=== PATIENT | female | born 1995 | race Caucasian/White ===

== ENCOUNTER 2018-05-28 13:08 | Emergency (ER) | payer OTHER ==
[~2018-05-28] VITALS: Ht 152.4 cm; Wt 68.0 kg
[~2018-05-28 13:08] MED LIST: BACTRIM DS TAB1 EACH PO; BENADRYL25 MG PO; MIRALAX17 GM PO; TRIAMCINOLONE A80 G2 TOP; VENTOLIN HFA 1818 GM INH
[2018-05-28] MEDS ORDERED: BACTRIM DS TAB1 EACH PO (13:33)
[2018-05-28] MEDS ORDERED: TRAMADOL 50 MG50 MG PO (13:33)
[2018-05-28] MEDS ORDERED: NABUMETONE 750750 M1 PO (13:33)
[2018-05-28 14:35] VITALS: BP 126/57
== END 2018-05-28 14:36 | disposition home or self-care (01) ==
LOC: M.ERS 13:08
DX: L02.31 Cutaneous abscess of buttock (principal); J45.909 Unspecified asthma, uncomplicated

== ENCOUNTER 2018-09-05 11:39 | Emergency (ER) | payer OTHER ==
[~2018-09-05] VITALS: Ht 152.4 cm; Wt 72.6 kg
[~2018-09-05 11:39] MED LIST changes: +NABUMETONE 750750 M1 PO; +TRAMADOL 50 MG50 MG PO
[2018-09-05] MEDS ORDERED: TESSALON PERLE100 MG PO (11:47)
[2018-09-05] MEDS ORDERED: PREDNISOLONE 5 M5 M1 PO (11:48)
[2018-09-05 12:08] LABS: ABSOLUTE BASOPHILS 0.1 thou/uL (0.0-0.2); ABSOLUTE EOSINOPHILS 0.2 thou/uL (0.0-0.7); ABSOLUTE LYMPHOCYTES 2.3 thou/uL (0.8-5.3); ABSOLUTE MONOCYTES 0.6 thou/uL (0.0-1.2); ABSOLUTE NEUTROPHILS 7.8 thou/uL (1.6-8.1); BASOPHILS 0.8 %; EOSINOPHILS 1.4 %; HEMATOCRIT 37.6 % (37.0-47.0); LYMPHOCYTES 21.2 %; MCH 29.6 pg (26.0-34.0); MCHC 34.6 g/dL (28.0-37.0); MCV 85.5 fL (80.0-100.0); MONOCYTES 5.5 %; MPV 7.4 fl. (7.2-11.1); NUCLEATED RBCS 0 /100WBC; PLATELET COUNT* 381 thou/uL (150-400); POLYS 71.1 %; RDW-CV 13.5 % (10.5-14.5)
[2018-09-05 12:16] LABS: URINE BILIRUBIN NEGATIVE (Negative); URINE BLOOD 2+ (Negative); URINE CLARITY CLEAR; URINE COLOR YELLOW; URINE GLUCOSE-RANDOM NEGATIVE (Negative); URINE KETONES NEGATIVE (Negative); URINE LEUKOCYTES-REFLEX NEGATIVE (Negative); URINE NITRITE-REFLEX NEGATIVE (Negative); URINE PROTEIN NEGATIVE (Negative); URINE SPECIFIC GRAVITY 1.025 (1.005-1.030)
[2018-09-05 12:17] LABS: CALCIUM 9.2 mg/dL (8.5-10.1); CREATININE 0.8 mg/dL (0.6-1.3); POTASSIUM 3.8 mmol/L (3.5-5.1)
[2018-09-05 12:22] LABS: TOTAL BILIRUBIN 0.4 mg/dL (<0.1-1.0); TOTAL PROTEIN 8.5 g/dL (6.4-8.2)
[2018-09-05 12:25] LABS: SQUAMOUS 4-10 Moderate /LPF (0-3)
[2018-09-05 12:26] LABS: URINE RBC 3-10 Few /HPF (0-2); URINE WBC-REFLEX 0-5 Rare /HPF (0-5)
[2018-09-05 12:27] LABS: CASTS None Seen /LPF (None Seen); CRYSTALS None Seen /LPF (None Seen); MUCUS >6 Heavy strn/LPF (None Seen)
[2018-09-05] MEDS ORDERED: ZOFRAN ODT4 MG DISSOLVE (13:00)
[2018-09-05] MEDS ORDERED: FLOMAX0.4 MG PO (13:00)
[2018-09-05] MEDS ORDERED: IBUPROFEN 800800 M1 PO (13:00)
[2018-09-05] MEDS ORDERED: PERCOCET PO (13:00)
[2018-09-05 13:22] VITALS: BP 126/70
== END 2018-09-05 13:23 | disposition home or self-care (01) ==
LOC: M.ERS 11:39
PROVIDERS: Emergency Medicine Emergency Medical Services
DX: N20.0 Calculus of kidney (principal); J45.909 Unspecified asthma, uncomplicated; Z88.5 Allergy status to narcotic agent

== ENCOUNTER 2018-10-26 10:14 | Emergency (ER) | payer OTHER ==
[~2018-10-26] VITALS: Ht 152.4 cm; Wt 72.6 kg
[~2018-10-26 10:14] MED LIST changes: +FLOMAX0.4 MG PO; +IBUPROFEN 800800 M1 PO; +PERCOCET PO; +PREDNISOLONE 5 M5 M1 PO; +TESSALON PERLE100 MG PO; +ZOFRAN ODT4 MG DISSOLVE
[2018-10-26] MEDS ORDERED: VENTOLIN HFA 1818 GM INH (10:29)
[2018-10-26 10:49] LABS: ICTOTEST (BILI CONFIRMATORY) Negative (Negative); URINE BILIRUBIN 1+ (Negative); URINE BLOOD NEGATIVE (Negative); URINE CLARITY CLEAR; URINE COLOR YELLOW; URINE GLUCOSE-RANDOM NEGATIVE (Negative); URINE KETONES NEGATIVE (Negative); URINE LEUKOCYTES-REFLEX NEGATIVE (Negative); URINE NITRITE-REFLEX NEGATIVE (Negative); URINE PROTEIN TRACE (Negative); URINE SPECIFIC GRAVITY 1.025 (1.005-1.030)
[2018-10-26 11:35] LABS: ABSOLUTE BASOPHILS 0.1 thou/uL (0.0-0.2); ABSOLUTE EOSINOPHILS 0.1 thou/uL (0.0-0.7); ABSOLUTE LYMPHOCYTES 1.9 thou/uL (0.8-5.3); ABSOLUTE MONOCYTES 0.6 thou/uL (0.0-1.2); ABSOLUTE NEUTROPHILS 7.1 thou/uL (1.6-8.1); BASOPHILS 1.1 %; EOSINOPHILS 1.5 %; HEMATOCRIT 36.3 % (37.0-47.0); HEMOGLOBIN 12.4 gm/dL (12.0-15.0); LYMPHOCYTES 19.4 %; MCH 29.4 pg (26.0-34.0); MCHC 34.1 g/dL (28.0-37.0); MCV 86.3 fL (80.0-100.0); MONOCYTES 6.1 %; MPV 7.4 fl. (7.2-11.1); NUCLEATED RBCS 0 /100WBC; PLATELET COUNT* 343 thou/uL (150-400); POLYS 71.9 %; RDW-CV 13.3 % (10.5-14.5); WBC 9.9 thou/uL (4.0-11.0)
[2018-10-26 11:43] LABS: CALCIUM 9.3 mg/dL (8.5-10.1); CREATININE 0.7 mg/dL (0.6-1.3); POTASSIUM 3.6 mmol/L (3.5-5.1)
[2018-10-26 11:48] LABS: ALBUMIN 3.6 g/dL (3.4-5.0); TOTAL BILIRUBIN 0.4 mg/dL (<0.1-1.0); TOTAL PROTEIN 7.9 g/dL (6.4-8.2)
[2018-10-26 13:20] VITALS: BP 138/79
== END 2018-10-26 13:20 | disposition home or self-care (01) ==
LOC: M.ERS 10:14
PROVIDERS: Family Medicine; Nurse Practitioner Family
DX: O23.511 Infections of cervix in pregnancy, first trimester (principal); Z3A.09 9 weeks gestation of pregnancy; O99.511 Diseases of the respiratory system complicating pregnancy, first trimester; J45.909 Unspecified asthma, uncomplicated; Z88.5 Allergy status to narcotic agent

== ENCOUNTER 2019-12-06 13:14 | Emergency (ER) | payer OTHER ==
[~2019-12-06] VITALS: Ht 160 cm; Wt 87.6 kg
[2019-12-06 13:53] LABS: ABSOLUTE EOSINOPHILS 0.2 thou/uL (0.0-0.7); ABSOLUTE LYMPHOCYTES 2.8 thou/uL (0.8-5.3); ABSOLUTE MONOCYTES 0.6 thou/uL (0.0-1.2); ABSOLUTE NEUTROPHILS 5.3 thou/uL (1.6-8.1); BASOPHILS 0.3 %; EOSINOPHILS 2.3 %; HEMATOCRIT 36.3 % (37.0-47.0); HEMOGLOBIN 12.5 gm/dL (12.0-15.0); LYMPHOCYTES 31.2 %; MCH 28.3 pg (26.0-34.0); MCHC 34.6 g/dL (28.0-37.0); MCV 81.8 fL (80.0-100.0); MONOCYTES 6.9 %; MPV 7.4 fl. (7.2-11.1); NUCLEATED RBCS 0 /100WBC; PLATELET COUNT* 320 thou/uL (150-400); POLYS 59.3 %; RBC 4.44 mil/uL (4.20-5.00); RDW-CV 14.3 % (10.5-14.5); WBC 8.9 thou/uL (4.0-11.0)
[2019-12-06 14:01] LABS: CREATININE 0.6 mg/dL (0.6-1.3); POTASSIUM 3.8 mmol/L (3.5-5.1)
[2019-12-06 14:12] LABS: ALBUMIN 3.8 g/dL (3.4-5.0); TOTAL BILIRUBIN 0.4 mg/dL (<0.1-1.0); TOTAL PROTEIN 7.7 g/dL (6.4-8.2)
[2019-12-06 14:18] LABS: URINE BILIRUBIN NEGATIVE (Negative); URINE BLOOD NEGATIVE (Negative); URINE CLARITY CLEAR; URINE COLOR YELLOW; URINE GLUCOSE-RANDOM NEGATIVE (Negative); URINE KETONES NEGATIVE (Negative); URINE LEUKOCYTES-REFLEX NEGATIVE (Negative); URINE NITRITE-REFLEX NEGATIVE (Negative); URINE PROTEIN NEGATIVE (Negative); URINE SPECIFIC GRAVITY 1.025 (1.005-1.030); URINE UROBILINOGEN 0.2 E.U./dl (0.2-1.0)
[2019-12-06 15:10] LABS: INFLUENZA A ANTIGEN Negative (Negative); INFLUENZA B ANTIGEN Negative (Negative)
[2019-12-06 15:27] VITALS: BP 134/60
--- NOTE | 2019-12-06 16:32 | EKG ---
[place] [address] ELECTROCARDIOGRAM REPORT Name: FAWN MAXWELL Izabella Room: [facility]#: [id number] Admission: 12/06/19 Attend Phys: Discharge: 12/06/19 Date of : [birth year] Date of Service: 12/06/19 1332 Report #: [id number] THIS REPORT FOR: //name// [facility] ED Test Date: 2019-12-06 Test Time: 13:32:46 Pat Name: FAWN MAXWELL Department: Room: Gender: Soot Blower: VÍCTOR : 1995 Requested By: Rikki Canales Order Number: [id number] MD: Helder Hernandez Measurements Intervals [place] Rate: 77 P: 49 [place]: 195 QRS: 35 QRSD: 100 T: 20 QT: 383 QTc: 434 Interpretive Statements Sinus rhythm Abnormal inferior Q waves No previous ECG available for comparison Electronically Signed On 12-06-2019 16:31:13 CDT by Helder Hernandez [email or web address] <ELECTRONICALLY SIGNED> By: Helder Hernandez MD, [facility] 12/06/19 1631 31 31 Helder Hernandez MD, FACC /EPI
== END 2019-12-06 15:28 | disposition home or self-care (01) ==
LOC: M.ERS 13:14
PROVIDERS: Emergency Medicine Emergency Medical Services
DX: R42 Dizziness and giddiness (principal); J45.909 Unspecified asthma, uncomplicated; Z87.442 Personal history of urinary calculi; Z88.5 Allergy status to narcotic agent; Z88.6 Allergy status to analgesic agent

== ENCOUNTER 2020-01-10 12:16 | Emergency (ER) | payer OTHER ==
[~2020-01-10] VITALS: Ht 152.4 cm; Wt 88.5 kg
[2020-01-10] MEDS ORDERED: METFORMIN HCL500 M3 PO (12:27)
[2020-01-10 12:54] LABS: INFLUENZA A ANTIGEN Negative (Negative); INFLUENZA B ANTIGEN Negative (Negative)
[2020-01-10 13:25] LABS: URINE BILIRUBIN NEGATIVE (Negative); URINE BLOOD NEGATIVE (Negative); URINE CLARITY CLEAR; URINE COLOR YELLOW; URINE GLUCOSE-RANDOM NEGATIVE (Negative); URINE KETONES NEGATIVE (Negative); URINE LEUKOCYTES-REFLEX NEGATIVE (Negative); URINE NITRITE-REFLEX NEGATIVE (Negative); URINE PROTEIN NEGATIVE (Negative); URINE SPECIFIC GRAVITY 1.025 (1.005-1.030); URINE UROBILINOGEN 0.2 E.U./dl (0.2-1.0)
[2020-01-10] MEDS ORDERED: VENTOLIN HFA 1818 GM INH (13:48)
[2020-01-10] MEDS ORDERED: ZPAK PO (13:48)
[2020-01-10 14:43] VITALS: BP 130/78
== END 2020-01-10 14:43 | disposition home or self-care (01) ==
LOC: M.ERS 12:16
PROVIDERS: Nurse Practitioner Family
DX: J06.9 Acute upper respiratory infection, unspecified (principal); R07.89 Other chest pain; J45.909 Unspecified asthma, uncomplicated; E11.9 Type 2 diabetes mellitus without complications; Z87.442 Personal history of urinary calculi; Z88.5 Allergy status to narcotic agent; Z88.6 Allergy status to analgesic agent

== ENCOUNTER 2020-05-23 20:24 | Emergency (ER) | payer MEDICAID ==
[~2020-05-23] VITALS: Ht 152.4 cm; Wt 83.9 kg
[~2020-05-23 20:24] MED LIST changes: +METFORMIN HCL500 M3 PO; +ZPAK PO
[2020-05-23 22:33] LABS: ABSOLUTE EOSINOPHILS 0.2 thou/uL (0.0-0.7); ABSOLUTE LYMPHOCYTES 3.4 thou/uL (0.8-5.3); ABSOLUTE MONOCYTES 0.5 thou/uL (0.0-1.2); ABSOLUTE NEUTROPHILS 4.3 thou/uL (1.6-8.1); BASOPHILS 0.4 %; EOSINOPHILS 2.5 %; HEMATOCRIT 36.3 % (37.0-47.0); HEMOGLOBIN 12.8 gm/dL (12.0-15.0); LYMPHOCYTES 40.5 %; MCH 30.3 pg (26.0-34.0); MCHC 35.3 g/dL (28.0-37.0); MCV 85.8 fL (80.0-100.0); MONOCYTES 6.4 %; MPV 7.6 fl. (7.2-11.1); NUCLEATED RBCS 0 /100WBC; PLATELET COUNT* 336 thou/uL (150-400); POLYS 50.2 %; RBC 4.23 mil/uL (4.20-5.00); RDW-CV 12.9 % (10.5-14.5); WBC 8.5 thou/uL (4.0-11.0)
[2020-05-23 22:41] LABS: CALCIUM 8.6 mg/dL (8.5-10.1); CREATININE 0.8 mg/dL (0.6-1.3); POTASSIUM 3.7 mmol/L (3.5-5.1)
[2020-05-23 22:46] LABS: ALBUMIN 3.8 g/dL (3.4-5.0); TOTAL BILIRUBIN 0.2 mg/dL (<0.1-1.0); TOTAL PROTEIN 7.7 g/dL (6.4-8.2)
[2020-05-23 22:46] LABS: URINE BILIRUBIN NEGATIVE (Negative); URINE BLOOD 3+ (Negative); URINE CLARITY CLEAR; URINE COLOR YELLOW; URINE GLUCOSE-RANDOM NEGATIVE (Negative); URINE KETONES NEGATIVE (Negative); URINE LEUKOCYTES-REFLEX NEGATIVE (Negative); URINE NITRITE-REFLEX NEGATIVE (Negative); URINE PROTEIN NEGATIVE (Negative); URINE SPECIFIC GRAVITY 1.025 (1.005-1.030); URINE UROBILINOGEN 0.2 E.U./dl (0.2-1.0)
[2020-05-23 22:54] LABS: SQUAMOUS 4-10 Moderate /LPF (0-3); URINE RBC 0-2 Rare /HPF (0-2); URINE WBC-REFLEX 0-5 Rare /HPF (0-5)
[2020-05-23 22:55] LABS: BACTERIA-REFLEX >30 Many /HPF (None Seen); CASTS None Seen /LPF (None Seen); CRYSTALS None Seen /LPF (None Seen); MUCUS 0-3 Light strn/LPF (None Seen)
[2020-05-24] MEDS ORDERED: IBUPROFEN 800800 MG PO (01:09)
[2020-05-24] MEDS ORDERED: CYCLOBENZAPRINE5 MG PO (01:09)
[2020-05-24 01:11] VITALS: BP 118/78
== END 2020-05-24 01:11 | disposition home or self-care (01) ==
LOC: M.ERS 20:24
PROVIDERS: Nurse Practitioner Family
DX: N93.8 Other specified abnormal uterine and vaginal bleeding (principal); J45.909 Unspecified asthma, uncomplicated; E11.9 Type 2 diabetes mellitus without complications; F17.210 Nicotine dependence, cigarettes, uncomplicated; Z88.6 Allergy status to analgesic agent; Z88.5 Allergy status to narcotic agent; Z87.442 Personal history of urinary calculi

== ENCOUNTER 2020-06-20 13:23 | Emergency (ER) | payer MEDICAID ==
[~2020-06-20] VITALS: Ht 152.4 cm; Wt 82.6 kg
[~2020-06-20 13:23] MED LIST changes: +CYCLOBENZAPRINE5 MG PO; +IBUPROFEN 800800 MG PO
[2020-06-20 14:02] LABS: ABSOLUTE EOSINOPHILS 0.3 thou/uL (0.0-0.7); ABSOLUTE LYMPHOCYTES 3.8 thou/uL (0.8-5.3); ABSOLUTE MONOCYTES 0.7 thou/uL (0.0-1.2); ABSOLUTE NEUTROPHILS 5.6 thou/uL (1.6-8.1); BASOPHILS 0.2 %; HEMATOCRIT 38.3 % (37.0-47.0); HEMOGLOBIN 13.5 gm/dL (12.0-15.0); LYMPHOCYTES 36.7 %; MCH 30.3 pg (26.0-34.0); MCHC 35.2 g/dL (28.0-37.0); MCV 86.2 fL (80.0-100.0); MONOCYTES 6.4 %; MPV 7.7 fl. (7.2-11.1); NUCLEATED RBCS 0 /100WBC; PLATELET COUNT* 335 thou/uL (150-400); POLYS 53.7 %; RBC 4.44 mil/uL (4.20-5.00); RDW-CV 12.8 % (10.5-14.5); WBC 10.4 thou/uL (4.0-11.0)
[2020-06-20 14:06] LABS: CALCIUM 9.4 mg/dL (8.5-10.1); CREATININE 0.8 mg/dL (0.6-1.3); POTASSIUM 3.9 mmol/L (3.5-5.1)
[2020-06-20 14:11] LABS: ALBUMIN 4.1 g/dL (3.4-5.0); TOTAL BILIRUBIN 0.3 mg/dL (<0.1-1.0); TOTAL PROTEIN 8.2 g/dL (6.4-8.2)
[2020-06-20 14:45] LABS: URINE BILIRUBIN NEGATIVE (Negative); URINE BLOOD NEGATIVE (Negative); URINE CLARITY SL CLOUDY; URINE COLOR YELLOW; URINE GLUCOSE-RANDOM NEGATIVE (Negative); URINE KETONES NEGATIVE (Negative); URINE LEUKOCYTES-REFLEX 1+ (Negative); URINE NITRITE-REFLEX NEGATIVE (Negative); URINE PROTEIN NEGATIVE (Negative); URINE SPECIFIC GRAVITY >= 1.030 (1.005-1.030); URINE UROBILINOGEN 0.2 E.U./dl (0.2-1.0)
[2020-06-20 14:52] LABS: AMP/METHAMP Negative (Negative); BARBITURATES Negative (Negative); BENZODIAZEPINES Negative (Negative); COCAINE Negative (Negative); METHADONE Negative (Negative); OPIATES Negative (Negative); PCP Negative (Negative); THC Negative (Negative)
[2020-06-20] MEDS ORDERED: KEFLEX500 M1 PO (14:56)
[2020-06-20 14:59] LABS: BACTERIA-REFLEX >30 Many /HPF (None Seen); SQUAMOUS >10 Many /LPF (0-3); URINE RBC 0-2 Rare /HPF (0-2); URINE WBC-REFLEX 0-5 Rare /HPF (0-5)
[2020-06-20 15:00] LABS: CASTS None Seen /LPF (None Seen); CRYSTALS None Seen /LPF (None Seen)
[2020-06-20 15:25] VITALS: BP 125/70
--- NOTE | 2020-06-20 15:30 | EKG ---
[place] [address] ELECTROCARDIOGRAM REPORT Name: FAWN MAXWELL Izabella Room: [facility]#: [id number] Admission: 06/20/20 Attend Phys: Discharge: 06/20/20 Date of : [birth year] Date of Service: 06/20/20 1330 Report #: [id number] THIS REPORT FOR: //name// [facility] ED Test Date: 2020-06-20 Test Time: 13:30:48 Pat Name: FAWN MAXWELL Department: Room: Gender: F [employer] Sergeant: [facility] : 1995 Requested By: Carlos Torres Order Number: [id number] MD: Helder Hernandez Measurements Intervals [place] Rate: 82 P: 49 [place]: 185 QRS: 42 QRSD: 98 T: 25 QT: 378 QTc: 442 Interpretive Statements Sinus rhythm Inferior Q waves noted compared to ECG 12/06/2019 13:32:46 No significant changes Electronically Signed On 06-20-2020 15:30:33 CDT by Helder Hernandez [email or web address] <ELECTRONICALLY SIGNED> By: Helder Hernandez MD, [facility] 06/20/20 1530 1330 Helder Hernandez MD, [facility] /EPI
== END 2020-06-20 15:25 | disposition home or self-care (01) ==
LOC: M.ERS 13:23
PROVIDERS: Physician Assistant
DX: N39.0 Urinary tract infection, site not specified (principal); R07.9 Chest pain, unspecified; R55 Syncope and collapse; J45.909 Unspecified asthma, uncomplicated; E11.9 Type 2 diabetes mellitus without complications; Z87.442 Personal history of urinary calculi; Z88.6 Allergy status to analgesic agent

== ENCOUNTER 2020-10-19 02:48 | Emergency (ER) | payer MEDICAID ==
[~2020-10-19] VITALS: Ht 152.4 cm; Wt 74.8 kg
[~2020-10-19 02:48] MED LIST changes: +KEFLEX500 M1 PO
[2020-10-19 04:06] LABS: ABSOLUTE BASOPHILS 0.1 thou/uL (0.0-0.2); ABSOLUTE EOSINOPHILS 0.2 thou/uL (0.0-0.7); ABSOLUTE LYMPHOCYTES 3.3 thou/uL (0.8-5.3); ABSOLUTE MONOCYTES 0.4 thou/uL (0.0-1.2); ABSOLUTE NEUTROPHILS 3.8 thou/uL (1.6-8.1); BASOPHILS 1.1 %; EOSINOPHILS 3.2 %; HEMATOCRIT 37.8 % (37.0-47.0); HEMOGLOBIN 13.2 gm/dL (12.0-15.0); LYMPHOCYTES 42.5 %; MCH 30.4 pg (26.0-34.0); MCHC 35.1 g/dL (28.0-37.0); MCV 86.8 fL (80.0-100.0); MONOCYTES 4.9 %; MPV 7.3 fl. (7.2-11.1); NUCLEATED RBCS 0 /100WBC; PLATELET COUNT* 299 thou/uL (150-400); POLYS 48.3 %; RBC 4.35 mil/uL (4.20-5.00); RDW-CV 12.9 % (10.5-14.5); WBC 7.8 thou/uL (4.0-11.0)
[2020-10-19 04:26] LABS: ALBUMIN 3.8 g/dL (3.4-5.0); CALCIUM 9.7 mg/dL (8.5-10.1); CREATININE 0.9 mg/dL (0.6-1.3); MAGNESIUM 1.9 mg/dL (1.8-2.4); POTASSIUM 4.1 mmol/L (3.5-5.1); TOTAL BILIRUBIN 0.2 mg/dL (<0.1-1.0); TOTAL PROTEIN 7.3 g/dL (6.4-8.2)
[2020-10-19] MEDS ORDERED: TRAMADOL 50 MG50 MG PO (04:52)
[2020-10-19 05:00] VITALS: BP 126/68
== END 2020-10-19 05:00 | disposition home or self-care (01) ==
LOC: M.ERS 02:48
PROVIDERS: Emergency Medicine
DX: M25.562 Pain in left knee (principal); J45.909 Unspecified asthma, uncomplicated; E11.9 Type 2 diabetes mellitus without complications; Z79.899 Other long term (current) drug therapy; Z88.8 Allergy status to other drugs, medicaments and biological substances

== ENCOUNTER 2021-02-07 09:59 | Emergency (ER) | payer MEDICAID ==
[~2021-02-07] VITALS: Ht 152.4 cm; Wt 81.7 kg
[2021-02-07] MEDS ORDERED: NAPROSYN500 MG PO (10:15)
[2021-02-07] MEDS ORDERED: PROTONIX40 M4 PO (10:15)
[2021-02-07 10:28] VITALS: BP 143/81
--- NOTE | 2021-02-07 14:48 | EKG ---
[place] [address] ELECTROCARDIOGRAM REPORT Name: FAWN MAXWELL Room: [facility]#: [id number] Admission: 02/07/21 Attend Phys: Discharge: 02/07/21 Date of : [birth year] Date of Service: 02/07/21 1004 Report #: [id number] THIS REPORT FOR: //name// [facility] ED Test Date: 2021-02-07 Test Time: 10:04:59 Pat Name: FAWN MAXWELL Department: Room: Gender: F Online Publisher: : 1995 Requested By: Wagner Brooks Order Number: [id number] MD: Buddy Og Measurements Intervals [place] Rate: 101 P: 39 [place]: 179 QRS: 43 QRSD: 102 T: 17 QT: 339 QTc: 440 Interpretive Statements Sinus tachycardia Borderline T wave abnormalities Baseline wander in lead(s) V6 Compared to ECG 06/20/2020 13:30:48 T-wave abnormality now present Sinus rate has increased Nondiagnostic inferior Q waves persist Electronically Signed On 02-07-2021 14:48:32 CDT by Buddy Og [email or web address] <ELECTRONICALLY SIGNED> By: Buddy Og MD, [facility] 02/07/21 1448 1004 1004 Buddy Og MD, FAC /EPI
== END 2021-02-07 10:29 | disposition home or self-care (01) ==
LOC: M.ERS 09:59
DX: R07.89 Other chest pain (principal); J45.909 Unspecified asthma, uncomplicated; F17.210 Nicotine dependence, cigarettes, uncomplicated; Z87.442 Personal history of urinary calculi; Z88.6 Allergy status to analgesic agent